=== PATIENT | male | born 1970 | race Hispanic/Latino ===

== ENCOUNTER → 2017-11-15 | Outpatient (CLI) | payer OTHER ==
[~2017-11-15] MED LIST: ASPI-1181 PO; CLOB30CR5 TP; CYPR4TAB35 PO; DEXL30CA3 PO; FLUO20TA29 PO; HYDR-4060 PO; INSLAN SQ; LOSA50TA37 PO; METF10004 PO; METO50TA18 PO; PRAS10TA6 PO; REGADENOSON 0.4 MG/5 ML PF SYG IVP SCH; TRAZ150T79 PO; VENL150T3 PO
== END | disposition home or self-care (01) ==
LOC: SHCH 08:02
PROVIDERS: ATTEND Internal Medicine Cardiovascular Disease
DX: I20.9 Angina pectoris, unspecified (principal); R06.00 Dyspnea, unspecified; R11.0 Nausea; R10.9 Unspecified abdominal pain
CPT/HCPCS: 78452; 93017; 96374; A9500 ×2; J2785

== ENCOUNTER → 2019-10-12 | Outpatient (CLI) | payer MEDICARE ==
[~2019-10-12] MED LIST changes: -CYPR4TAB35 PO; +CYPR4TAB46 PO; +IOHEXOL-350 50ML VIAL IV ONE; -LOSA50TA37 PO; +LOSA50TA64 PO; +METF-446 PO; -METF10004 PO; -REGADENOSON 0.4 MG/5 ML PF SYG IVP SCH
== END | disposition home or self-care (01) ==
LOC: RAH 10:45
PROVIDERS: ATTEND Internal Medicine Cardiovascular Disease
DX: K76.0 Fatty (change of) liver, not elsewhere classified (principal); K44.9 Diaphragmatic hernia without obstruction or gangrene; J84.10 Pulmonary fibrosis, unspecified; Z95.1 Presence of aortocoronary bypass graft
CPT/HCPCS: 71260; Q9967

== ENCOUNTER → 2020-07-03 | Outpatient (CLI) | payer MEDICARE ==
[~2020-07-03] MED LIST changes: -ASPI-1181 PO; +ASPI-1443 PO; -IOHEXOL-350 50ML VIAL IV ONE; +REGADENOSON 0.4 MG/5 ML PF SYG IVP SCH
== END | disposition home or self-care (01) ==
LOC: SHCH 08:37
PROVIDERS: ATTEND Internal Medicine Cardiovascular Disease
DX: R07.9 Chest pain, unspecified (principal)
CPT/HCPCS: 78452; 93017; 96374; A9500 ×2; J2785

== ENCOUNTER 2020-07-25 05:50 | Day surgery (SDC) | payer MEDICARE ==
[2020-07-23 11:33] LABS: BASOPHILS % (AUTO) 0.3 % (0.0-5.0); EOSINOPHILS % (AUTO) 0.8 % (0.0-8.0); HEMATOCRIT 43.7 % (42-54); LYMPHOCYTES % (AUTO) 22.8 % (21.0-51.0); MEAN CORPUSCULAR HEMOGLOBIN 27.3 pg (27.0-33.0); MEAN CORPUSCULAR HGB CONC 31.8 g/dL (32.0-36.0); MEAN CORPUSCULAR VOLUME 85.9 fL (79-99); MONOCYTES % (AUTO) 7.7 % (3.0-13.0); NEUTROPHILS % (AUTO) 68.3 % (40.0-77.0); PLATELET COUNT (AUTO) 207 K/uL (130-400); RED BLOOD CELL COUNT(AUTO) 5.09 MIL/uL (4.50-6.20); RED CELL DISTRIBUTION WIDTH 13.6 % (11.0-15.5); WHITE BLOOD COUNT (AUTO) 7.6 K/uL (4.8-10.8)
[2020-07-23 11:36] LABS: APPEARANCE,URINE Clear (CLEAR); BILIRUBIN,URINE Negative (NEGATIVE); COLOR,URINE Yellow (YELLOW); GLUCOSE, URINE (UA) 500 mg/dL (NEGATIVE); KETONES,URINE Negative (NEGATIVE); LEUKOCYTE ESTERASE ,URINE Negative (NEGATIVE); NITRATE,URINE Negative (NEGATIVE); OCCULT BLOOD,URINE Negative (NEGATIVE); PROTEIN,URINE Trace mg/dL (NEGATIVE)
[2020-07-23 11:43] LABS: INR 0.89 (0.85-1.15); PARTIAL THROMBOPLASTIN TIME 23.8 SEC (26.3-35.5); PROTHROMBIN TIME 9.7 SEC (9.6-11.6)
[2020-07-23 11:48] LABS: BACTERIA,URINE Rare /HPF (None Seen); MUCUS,URINE Few LPF (None Seen); RBC,URINE 0-1 /HPF (0-1); SPERM,URINE Few /HPF (None Seen); SQUAMOUS EPITHELIAL CELL,UR Rare /HPF (0-2); WBC,URINE 0-1 /HPF (0-1)
[~2020-07-25] VITALS: Ht 153.7 cm; Wt 111.0 kg
[2020-07-25] VITALS (8 sets, daily range): BP systolic 108–127; BP diastolic 57–83
[~2020-07-25 05:50] MED LIST changes: +ATOR20TA65 PO; -DEXL30CA3 PO; +ESOM20CA39 PO; +FLUO20CA35 PO; -FLUO20TA29 PO; -HYDR-4060 PO; -INSLAN SQ; +LIRA0.6P SQ; +MELA3CAP2 PO; +MULT-1192 PO; -REGADENOSON 0.4 MG/5 ML PF SYG IVP SCH; +SILD100T PO; +SODIUM CHLORIDE 0.9% 500ML 500 ML IV SCH; +VENL-63 PO; -VENL150T3 PO; +vitamin b12 PO
--- NOTE | 2020-07-25 07:30 | NUR ---
PREOP PT ARRIVED AMBULATORY IN NO DISTRESS. PT ORIENTED TO ROOM AND CALL LIGHT. WILL CONTINUE TO MONITOR PT
--- NOTE | 2020-07-25 08:40 | NUR ---
REPORT CALLED SALES AND BUSINESS DEVELOPMENT MANAGER AND REPORTED FBS TO BERTA MEDRANO RN. NO NEW ORDERS GIVEN AT THIS TIME.
[2020-07-25] MEDS ORDERED: SODIUM CHLORIDE 0.9% 1000ML 1,000 ML IV ONE (08:42)
--- NOTE | 2020-07-25 09:12 | NUR ---
OLERICULTURE PROFESSOR PT TAKEN TO OLERICULTURE PROFESSOR VIA BED IN NO DISTRESS BY HERNAN DELGADILLO
[2020-07-25] MEDS ORDERED: MIDAZOLAM HCL 1 MG/ML 2ML VIAL ONE (09:14)
[2020-07-25] MEDS ORDERED: NITROGLYCERIN 2 MG/VIAL VIAL IV ONE (09:14)
[2020-07-25] MEDS ORDERED: IOHEXOL 350 MG/ML 100ML INFUS..BTL IV ONE (09:14)
[2020-07-25] MEDS ORDERED: HEPARIN SODIUM 1000UNIT/ML 10ML VIAL ONE (09:14)
[2020-07-25] MEDS ORDERED: NICARDIPINE HCL 25 MG/10 ML ML IV ONE (09:14)
[2020-07-25] MEDS ORDERED: LIDOCAINE HCL 2% 20ML ONE (09:15)
[2020-07-25] MEDS ORDERED: FENTANYL CITRATE PF 50 MCG/1 ML 2ML VIAL ONE (09:15)
[2020-07-25] MEDS ORDERED: IOHEXOL-350 75 ML VIAL IV ONE (10:34)
[2020-07-25] MEDS ORDERED: PRASUGREL HCL 10 MG TABLET ONE (10:52)
--- NOTE | 2020-07-25 11:35 | NUR ---
PROCEDURE PT HERE FROM COMMERCIAL INTERN. INSTRUCTED ON IMPORTANCE OF KEEPING RIGHT LEG STRAIGHT AND NOT TO LIFT UP HEAD OFF OF BED. VERBALIZED UNDERSTANDING.
--- NOTE | 2020-07-25 11:50 | NUR ---
REPORT REPORT GIVEN TO ELIE MOSCOSO. SITE TO RIGHT LEG SOFT TO TOUCH. NO BLEEDING, OOZING NOTED TO SITE.
--- NOTE | 2020-07-25 11:50 | NUR ---
report received report from shaan bah rn
--- NOTE | 2020-07-25 13:00 | NUR ---
report report given to jesse sibley rn for continuation of care
--- NOTE | 2020-07-25 15:05 | NUR ---
dc pt dc home via wc,no distress noted. left groin with no bleeding or hematoma. pt accompanied by spouse
== END 2020-07-25 15:05 | disposition home or self-care (01) ==
LOC: DAH 05:50
PROVIDERS: ATTEND Internal Medicine Cardiovascular Disease
DX: I25.10 Atherosclerotic heart disease of native coronary artery without angina pectoris (principal); I10 Essential (primary) hypertension; E78.5 Hyperlipidemia, unspecified; E11.9 Type 2 diabetes mellitus without complications; N52.1 Erectile dysfunction due to diseases classified elsewhere; Z95.1 Presence of aortocoronary bypass graft; Z95.5 Presence of coronary angioplasty implant and graft; Z79.82 Long term (current) use of aspirin; Z79.899 Other long term (current) drug therapy
CPT/HCPCS: 36415; 71045; 80048; 81001; 82948 ×2; 85025; 85610; 85730; 92920; 93005; 93459; A4215; A4216; A4221; A4222; A4223 ×3; A4606; A4663; C1725; C1760; C1769 ×3; C1887; C1894 ×2; J1644 ×3; J2250; J3010; J3490 ×3; J7030; Q9965 ×2; Q9967 ×2; 99156; 99157

== ENCOUNTER → 2022-08-26 | Outpatient (CLI) | payer MEDICARE, OTHER ==
[~2022-08-26] MED LIST changes: -FLUO20CA35 PO; +FLUO20CA36 PO; -SODIUM CHLORIDE 0.9% 500ML 500 ML IV SCH
[2022-08-26 12:35] LABS: CREATININE 1.1 mg/dL (0.5-1.5)
== END | disposition home or self-care (01) ==
LOC: LAB 11:03
PROVIDERS: ATTEND Internal Medicine Cardiovascular Disease
DX: I10 Essential (primary) hypertension (principal); I25.10 Atherosclerotic heart disease of native coronary artery without angina pectoris
CPT/HCPCS: 36415; 82565; 84520

== ENCOUNTER → 2022-09-02 | Outpatient (CLI) | payer OTHER | END | disposition home or self-care (01) | LOC: RAH 09:39 | PROVIDERS: ATTEND Internal Medicine Cardiovascular Disease | DX: S22.23XK Sternal manubrial dissociation, subsequent encounter for fracture with nonunion (principal); X58.XXXA Exposure to other specified factors, initial encounter; Y93.89 Activity, other specified; Y92.89 Other specified places as the place of occurrence of the external cause; Y99.8 Other external cause status | CPT/HCPCS: 71275 ==

== ENCOUNTER → 2023-11-07 | Outpatient (CLI) | payer OTHER | END | disposition home or self-care (01) | LOC: SHCH 07:55 | PROVIDERS: ATTEND Internal Medicine Cardiovascular Disease | DX: R01.1 Cardiac murmur, unspecified (principal) | CPT/HCPCS: 93306 ==

== ENCOUNTER 2024-11-01 05:30 | Day surgery (SDC) | payer OTHER ==
[2024-10-29 08:30] LABS: BASOPHILS # (AUTO) 0.02 K/uL (0.00-0.20); BASOPHILS % (AUTO) 0.3 % (0.0-5.0); EOSINOPHILS # (AUTO) 0.07 K/uL (0.00-0.70); HEMATOCRIT 44.4 % (42-54); IMMATURE GRANULOCYTE ABSOLUTE 0.03 K/uL (0-1); LYMPHOCYTES # (AUTO) 1.7 K/uL (1.0-4.8); LYMPHOCYTES % (AUTO) 25.8 % (21.0-51.0); MEAN CORPUSCULAR HEMOGLOBIN 29.5 pg (27.0-33.0); MEAN CORPUSCULAR VOLUME 86.9 fL (79-99); MONOCYTES # (AUTO) 0.6 K/uL (0.1-1.0); MONOCYTES % (AUTO) 9.4 % (3.0-13.0); NEUTROPHILS # (AUTO) 4.2 K/uL (1.8-7.7); NEUTROPHILS % (AUTO) 63.1 % (40.0-77.0); PLATELET COUNT (AUTO) 172 K/uL (130-400); RED BLOOD CELL COUNT(AUTO) 5.11 MIL/uL (4.50-6.20); RED CELL DISTRIBUTION WIDTH 13.5 % (11.0-15.5); WHITE BLOOD COUNT (AUTO) 6.7 K/uL (4.8-10.8)
[2024-10-29 08:39] LABS: CREATININE 1.1 mg/dL (0.5-1.3); POTASSIUM 4.7 mmol/L (3.5-5.1)
[2024-10-29 08:40] LABS: INR <= 0.93 (0.85-1.15); PROTHROMBIN TIME 10.2 SEC (9.6-11.6)
[2024-10-29 08:42] LABS: PARTIAL THROMBOPLASTIN TIME 24.8 SEC (26.3-35.5)
[2024-10-29 08:45] VITALS: BP 110/67; PULSE 97; RESP 18; TEMP 98.1
[2024-10-29 09:13] LABS: B-TYPE NATRIURETIC PEPTIDE 28 pg/mL (0-100)
--- NOTE | 2024-10-29 09:35 | HMCIMG ---
CHEST 1VW REASON: PRE OP COMPARISON: 09/02/2022 FINDINGS: Single view of the chest was obtained. Lungs are clear. Heart size is normal. There is no pulmonary vascular congestion. Mediastinum and bony thorax appear unremarkable. There has been a previous median sternotomy. IMPRESSION: 1. No acute finding, no change.
--- NOTE | 2024-10-30 09:40 | EKG ---
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
[~2024-11-01] VITALS: Ht 177.8 cm; Wt 99.2 kg
[2024-11-01] VITALS (9 sets, daily range): BP systolic 102–148; BP diastolic 62–81; PULSE 84–98; RESP 12–16; TEMP 97.5–97.6
[~2024-11-01 05:30] MED LIST changes: +ATOR10 PO; -ATOR20TA65 PO; -CLOB30CR5 TP; +DOXE50CA4 PO; +EMPA25TA PO; -ESOM20CA39 PO; +ESOM20CA51 PO; +FLUO-418 PO; -FLUO20CA36 PO; +GABA-529 PO; +INSU100I3 SQ; +INSU100I94 SQ; +LIDO700A30 TP; -LIRA0.6P SQ; -MELA3CAP2 PO; -METF-446 PO; +METF750T46 PO; +METO-409 PO; -METO50TA18 PO; -MULT-1192 PO; -PRAS10TA6 PO; +PRAS10TA9 PO; +SEMA1PEN3 SQ; -SILD100T PO; +SILD20TA14 PO; -TRAZ150T79 PO; +VENL150T3 PO; -vitamin b12 PO
[2024-11-01] MEDS: 0.9%NACL 1000ML 1,000 ML IV SCH (06:21)
[2024-11-01] MEDS ORDERED: HEParin 10,000 UNIT/10ML (1,000 UNIT/ML) VIAL ONE (07:21)
[2024-11-01] MEDS ORDERED: HEParin-NS 1,000 UNIT/500 ML 1,000 ML IV ONE (07:21)
[2024-11-01] MEDS ORDERED: LIDOCAINE HCL 400MG/20ML VIAL ONE (07:21)
[2024-11-01] MEDS ORDERED: NITROGLYCERIN 50MG VIAL ONE (07:21)
[2024-11-01] MEDS ORDERED: niCARDIpine 25MG INJ IV ONE (07:21)
[2024-11-01] MEDS ORDERED: IOHEXOL 350 MG/ML 100ML INFUS..BTL IV ONE (07:21)
[2024-11-01] MEDS ORDERED: MIDAZOLAM HCL 1 MG/ML 2ML VIAL ONE ×2 (07:42→08:57)
[2024-11-01] MEDS ORDERED: FENTanyl CITRate PF 50 MCG/1 ML 2ML VIAL ONE (07:42)
[2024-11-01] MEDS ORDERED: PRASUGREL HCL 10 MG TABLET ONE (08:52)
[2024-11-01] MEDS ORDERED: ASPIRIN 325MG EC TAB PO ONE (08:52)
[2024-11-01] MEDS ORDERED: DEXTROSE 50%-WATER 50 ML DISP.SYRIN IV PRN (10:00)
[2024-11-01] MEDS ORDERED: 0.9%NACL 1000ML 1,000 ML IV SCH (10:00)
[2024-11-01] MEDS ORDERED: GLUCAGON 1MG KIT 1 MG ML IM PRN (10:00)
--- NOTE | 2024-11-01 10:08 | PRN ---
PROCEDURE NOTE Indications: 1. Chest pain, CCS III symptoms (on GDMT) 2. 2V CAD s/p 2V CABG (ZAFAR-LAD, SVG-OM1) done on 10/18/2014, s/p PCI with LOAN placement in the Diag 1 and distal LM-ostial LCx done on 02/22/2017, s/p PCI with balloon angioplasty in the Diag 1 done on 07/25/2020 3. Mildly depressed left ventricle systolic function (LVEF 45-50% by echocardiogram done on 11/07/2023) 4. HTN 5. DM2 6. GERD 7. HLP Procedures: Left heart catheterization, graft assessment, femoral angiogram Introduction: After informed written consent was obtained, the patient was brought to the Catheterization Lab in the usual fasting state. Following sterile prep and drape, a time out was performed, then moderate sedation was administered, 1mg of Versed and 50mcg of Fentanyl, then 1% Lidocaine was infiltrated into the right femoral groin. Using a Modified Seldinger technique, a 6Fr Sheath was inserted into the right common femoral artery. While under fluoroscopic guidance, diagnostic coronary catheters were advanced over a wire into the central circulation where they were aspirated, flushed and placed to pressure monitoring, once the wire was removed. Coronary Angio: The bypass grafts, left and right coronary arteries were engaged with appr opriate catheters and angiography was performed under continuous pressure monitoring. Left Heart Catheterization: A JR4 catheter was inserted into the LV and the pressure was recorded, then the catheter was removed from the LV. Cardiac Findings: Right dominant system LM: Small caliber vessel with a stent in the distal left main into the ostial LCX. There was 90% ISR within the stent. LAD: Small caliber vessel with 90% stenosis in the ostial LAD and 100% stenosis in the proximal to mid LAD. Diagonal 1: Small caliber vessel with a patent stent in the proximal diagonal one with minimal ISR. LCX: Medium caliber vessel with a stent in the distal left main into the ostial LCX. There is 90% ISR within the stent. OM1: Small caliber vessel (< 1.5 mm in size) with 90% stenosis in the ostium of OM1. OM2: Small caliber vessel (< 1.25 mm in size) with 99% stenosis (subtotal occlusion) in the ostial OM2. SIMEON 2 blood flow OM3: Medium caliber vessel with 80% stenosis in the proximal OM3 RCA: Large caliber vessel with 90% stenosis in the proximal RCA. The rest of the vessel has mild luminal irregularities RPDA: Medium caliber vessel with mild luminal irregularities. RPLV: Medium caliber vessel with mild luminal irregularities. ZAFAR-LAD: Widely patent graft that fills the LAD and both a retrograde and antegrade manner down to the apex. SVG-OM1: 100% stenosis at the ostium of the vein graft (from previous [facility]) LVEDP: 26mmHg Medications given: Versed 3mg, Fentanyl 100mcg Coronary Intervention: None Complications: None Conscious Sedation Monitoring: Under my direct order and supervision, medication for moderate conscious sedation was administered by the nursing staff and the patients level of consciousness and physiological status was monitored by an independent trained nurse. Closure of Access Site: After the case completed the sheath was pulled and a 6Fr Angioseal was deployed in the right common femoral artery without complication. Conclusion: 1. 3V CAD s/p 2V CABG, ZAFAR-LAD, SVG-OM1 (100% stenosis/occlusion at the ostium of the vein graft from previous [facility] done in 2016) s/p PCI with LOAN placement in the Diag 1 and distal LM-ostial LCx done on 02/22/2017, s/p PCI with balloon angioplasty of the Diag 1 done on 07/25/2020, currently with 90% ISR within the stent in the distal LM-ostial LCx (likely undersized), 90% stenosis in the ostial LAD, 100% stenosis in the prox-mid LAD, patent stent in the Diag 1, 90% stenosis in the ostial OM1, 99% stenosis in the ostial OM2, 80% stenosis in the proximal OM3, 90% stenosis in the proximal RCA and a patent ZAFAR-LAD. 2. Chest pain, CCS III symptoms, on GDMT 3. Mildly depressed left ventricle systolic function (LVEF 45-50% by echocardiogram done on 11/07/2023) 4. DM2 5. HLP 6. GERD Recommendation: 1. Consult CT surgery for redo CABG evaluation (SVG-Diag 1, SVG-OM3, SVG-distal RCA). If CT surgery says no to redo CABG, [facility] 2. Continue goal-directed medical therapy. 3. Groin precautions 4. 4 hours of bedrest 5. No driving for the next 48 hours 6. No heavy lifting or strenuous exercise for the next two weeks. MATTHEW NEGRO MD Nov 01, 2024 10:08
--- NOTE | 2024-11-01 10:59 | NUR ---
Patient remains stable with femoral site wnl. No sign of bleeding, bruising or hematoma. Dr. Bautista spoke at length with Patient and . Decision made to proceed with CV surgery in [place]. He stated someone would contact them carloz with CV Consult appointment date and time. Updated [place] case # [id number]. Patient will discharge home today post bedrest and IVF completion.
--- NOTE | 2024-11-01 12:41 | NUR ---
Full and complete discharge instructions given to Patient and both verbally and in writing. All questions answered. Voiced understanding to Angiogram with Femoral precautions expected follow up at [facility] in [place]. stated Dr. Bautista sent a referral in today and she would be expecting an appointment to be extended by tomorrow. Patient denies c/o pain or discomfort. Voided moderate amount of clear yellow urine x 3. Femoral site soft without evidence of bleeding, bruising or hematoma. Pedal pulses in tact to BLE's. PIV removed with catheter tip intact. Addendum: 11/01/24 at 1309 by BERNNEN DIETZ RN RN W/C to POV with to Home at 13:00 pm
== END 2024-11-01 13:00 | disposition home or self-care (01) ==
LOC: DAH 05:30
PROVIDERS: ATTEND Internal Medicine Cardiovascular Disease
DX: R94.39 Abnormal result of other cardiovascular function study (principal); I25.10 Atherosclerotic heart disease of native coronary artery without angina pectoris; R07.9 Chest pain, unspecified; I10 Essential (primary) hypertension; E11.9 Type 2 diabetes mellitus without complications; K21.9 Gastro-esophageal reflux disease without esophagitis; E78.5 Hyperlipidemia, unspecified; Z79.899 Other long term (current) drug therapy; Z98.890 Other specified postprocedural states
CPT/HCPCS: 80048; 83880; 85025; 85610; 85730; 36415; 71045; 93005; 93459; 82948; C1769 ×2; C1887 ×2; C1894 ×2; C1760; Q9965 ×2; J3010; J3490 ×2; J2250 ×2; J1644; Q9967; A4215; A4222; A4221; A4663; A4216; A4606; A4223 ×3; 96360; 96361; 99156; 99157